=== PATIENT | female | born 1950 | race Caucasian/White ===

== ENCOUNTER 2018-07-30 09:37 | Emergency (ER) | payer OTHER, MEDICAID ==
[~2018-07-30] VITALS: Ht 149.9 cm; Wt 95.3 kg
[~2018-07-30 09:37] MED LIST: BACL10TA4 PO; CALC600T7 PO; CITA20TA15 PO; GABA-560 PO; LOSA50TA39 PO; METO25TA PO; NAPR-54 PO; TRAM50TA3 PO
[2018-07-30 09:44] VITALS: BP 194/81
[2018-07-30] MEDS ORDERED: ALBUTEROL SULFATE/IPRATROPIU 3 ML SOL IH ONE (10:15)
[2018-07-30 10:45] VITALS: BP 184/80
== END 2018-07-30 10:45 | disposition home or self-care (01) ==
LOC: MED 09:37
DX: J20.9 Acute bronchitis, unspecified (principal); I10 Essential (primary) hypertension; Z79.899 Other long term (current) drug therapy
CPT/HCPCS: 71045; 94640; 99283; J7620

== ENCOUNTER 2018-08-09 19:12 | Emergency (ER) | payer OTHER, MEDICAID ==
[~2018-08-09] VITALS: Ht 152.4 cm; Wt 113.4 kg
[~2018-08-09 19:12] MED LIST changes: +LOSA50TA27 PO; -LOSA50TA39 PO
[2018-08-09 19:18] VITALS: BP 174/79
[2018-08-09] MEDS ORDERED: NACL 0.9% 1,000 ML IV ONE (20:34)
[2018-08-09] MEDS ORDERED: KETOROLAC 30 MG/ML VIAL IVP ONE (20:35)
[2018-08-09] MEDS ORDERED: ACETAMIN/CODEINE 120/12MG-5ML 5 ML UDC PO ONE (20:35)
[2018-08-09] MEDS ORDERED: ONDANSETRON 4 MG/2 ML VIAL IVP ONE (20:40)
[2018-08-09 21:03] LABS: BASOPHILS # (AUTO) 0.1 K/uL (0.00-0.22); BASOPHILS % (AUTO) 0.7 % (0.0-2.0); EOSINOPHILS # (AUTO) 0.2 K/uL (0-0.4); EOSINOPHILS % (AUTO) 2.4 % (0.0-4.0); HEMATOCRIT 41.6 % (36-48); HEMOGLOBIN 13.8 g/dL (12.0-16.0); LYMPHOCYTES # (AUTO) 3.4 K/uL (2.5-16.5); LYMPHOCYTES % (AUTO) 43.9 % (20.5-51.1); MEAN CORPUSCULAR HEMOGLOBIN 30 pg (27-31); MEAN CORPUSCULAR HGB CONC 33 g/dL (33-37); MEAN CORPUSCULAR VOLUME 89.9 fL (80-94); MONOCYTES # (AUTO) 0.7 K/uL (0.8-1.0); MONOCYTES % (AUTO) 9.8 % (1.7-9.3); NEUTROPHILS # (AUTO) 3.3 K/uL (1.8-7.7); NEUTROPHILS % (AUTO) 43.2 % (42.2-75.2); PLATELET COUNT (AUTO) 231 K/uL (140-450); RED BLOOD CELL COUNT(AUTO) 4.63 MIL/uL (4.20-5.40); RED CELL DISTRIBUTION WIDTH 13.9 % (11.6-13.7); WHITE BLOOD COUNT (AUTO) 7.6 K/uL (4.8-10.8)
[2018-08-09 21:32] LABS: ALBUMIN 3.5 g/dL (3.4-5.0); ANION GAP 11.3 (8-16); CREATININE 1.1 mg/dL (0.6-1.3); POTASSIUM 3.3 mmol/L (3.5-5.1); TOTAL BILIRUBIN 0.5 mg/dL (0.0-1.0)
[2018-08-09] MEDS ORDERED: ALBUTEROL SULFATE/IPRATROPIU 3 ML SOL IH ONE (21:40)
[2018-08-09 21:45] LABS: APPEARANCE,URINE CLEAR (CLEAR); BLOOD, URINE NEGATIVE (NEGATIVE); COLOR,URINE YELLOW (YELLOW); PH,URINE 6.5 (5.0-9.0); UGLUCOSE NEGATIVE (NEGATIVE)
[2018-08-09 21:46] LABS: BILIRUBIN,URINE NEGATIVE (NEGATIVE); LEUKOCYTE ESTERASE ,URINE 2+ (NEGATIVE); NITRITE, URINE NEGATIVE (NEGATIVE)
[2018-08-09 21:54] LABS: RBC,URINE 0-5 (RARE) /HPF (0-5)
[2018-08-09 21:55] LABS: URINE AMORPHOUS URATE 1+ /HPF (None Seen)
[2018-08-10 00:25] VITALS: BP 143/78
== END 2018-08-10 00:24 | disposition home or self-care (01) ==
LOC: MED 19:12
DX: J20.9 Acute bronchitis, unspecified (principal); I10 Essential (primary) hypertension; Z79.899 Other long term (current) drug therapy
CPT/HCPCS: 36415; 71045; 80053; 81001; 83605; 83690; 84484; 85025; 87040; 87086; 87804; 94640; 94760; 96374; 96375; 99285; J1885; J2405; J7030; J7620; Q0092

== ENCOUNTER 2018-08-20 14:26 | Emergency (ER) | payer OTHER, MEDICAID ==
[~2018-08-20] VITALS: Ht 152.4 cm; Wt 97.5 kg
[2018-08-20 14:32] VITALS: BP 123/77
--- NOTE | 2018-08-20 14:40 | NUR ---
PT AMBULATES TO BED 4
--- NOTE | 2018-08-20 14:43 | NUR ---
67/F BIB DTR C/O RT RIB PAIN X YESTERDAY. PT STATES SHE WAS REACHING FOR SOMETHING BEHIND THE BED AND HIT HER RIB AGAINST THE CORNER BALL OF THE BED". - SWELLING, - REDNESS AT THIS TIME . HX; HTN, HIGH CHOLESTEROL, ARTHRITIS.AAOX4 WITH EVEN AND STEADY GAIT; LUNGS CLEAR BL. PATIENT STATES PAIN OF 9/10 AT THIS TIME. PATIENT POSITIONED FOR COMFORT; HOB ELEVATED; BEDRAILS UP X2; BED DOWN. ER MD MADE AWARE OF PT STATUS.
[2018-08-20] MEDS ORDERED: HYDROcodone/APAP 5/325 MG 1 TAB TAB PO ONE (14:50)
--- NOTE | 2018-08-20 14:58 | NUR ---
PT TAKEN TO X RAY VIA W/C, ACCOMPANIED BY [employer].
--- NOTE | 2018-08-20 14:58 | NUR ---
Gumaro murguia in [facility] - 08/20/18 at 1459 by MEDALEJANDRO XRAY AT BEDSIDE
--- NOTE | 2018-08-20 15:13 | NUR ---
PT RETURNED FROM XRAY
[2018-08-20 16:22] VITALS: BP 136/76
--- NOTE | 2018-08-20 16:22 | NUR ---
Patient discharged with v/s stable. Written and verbal after care instructions given and explained. Patient alert, oriented and verbalized understanding of instructions. Ambulatory with steady gait. All questions addressed prior to discharge. ID band removed. Patient advised to follow up with PMD. Rx of TRAMADOL & IBUPROFEN given. Patient educated on indication of medication including possible reaction and side effects. Opportunity to ask questions provided and answered.
== END 2018-08-20 16:22 | disposition home or self-care (01) ==
LOC: MED 14:26
DX: S20.20XA Contusion of thorax, unspecified, initial encounter (principal); I10 Essential (primary) hypertension; Z79.899 Other long term (current) drug therapy; W19.XXXA Unspecified fall, initial encounter; Y93.89 Activity, other specified; Y92.89 Other specified places as the place of occurrence of the external cause; Y99.8 Other external cause status
CPT/HCPCS: 71101; 99284

== ENCOUNTER 2018-12-31 23:40 | Inpatient (IN) | payer OTHER ==
[~2018-12-31] VITALS: Ht 152.4 cm; Wt 97.5 kg
[~2018-12-31 23:40] MED LIST changes: -LOSA50TA27 PO; +LOSA50TA66 PO
[2018-12-31 23:42] VITALS: BP 167/77
--- NOTE | 2018-12-31 23:54 | NUR ---
PT W/C ASSISTED TO ER 3
--- NOTE | 2018-12-31 23:55 | NUR ---
ASSUMED CARE OF PT AT THIS TIME. C/O N/V AMS X 6 HOURS AGO S/P EATING DINNER. PT IS LETHARGIC AND NOT ANSWERSING QUESTIONS APPROPRIATELY AT THIS TIME. NO OBVIOUS NEURO DEFICITS OR TRAUMA NOTED. PT ABLE TO MOVE ALL EXTREMITIES. 0/10 AT THIS TIME; VSS; PATIENT POSITIONED FOR COMFORT; HOB ELEVATED; BEDRAILS UP X2; BED DOWN. ER MD MADE AWARE OF PT STATUS. WILL CONTINUE TO MONITOR.
--- NOTE | 2019-01-01 00:17 | NUR ---
PT TAKEN TO CT
[2019-01-01 00:49] LABS: BASOPHILS % (AUTO) 0.3 % (0.0-2.0); EOSINOPHILS # (AUTO) 0.1 K/uL (0-0.4); EOSINOPHILS % (AUTO) 1.1 % (0.0-4.0); HEMOGLOBIN 13.5 g/dL (12.0-16.0); LYMPHOCYTES # (AUTO) 3.5 K/uL (2.5-16.5); MEAN CORPUSCULAR HEMOGLOBIN 31 pg (27-31); MEAN CORPUSCULAR HGB CONC 34 g/dL (33-37); MEAN CORPUSCULAR VOLUME 91.8 fL (80-94); MONOCYTES # (AUTO) 0.7 K/uL (0.8-1.0); MONOCYTES % (AUTO) 8.2 % (1.7-9.3); NEUTROPHILS % (AUTO) 48.4 % (42.2-75.2); PLATELET COUNT (AUTO) 188 K/uL (140-450); RED BLOOD CELL COUNT(AUTO) 4.35 MIL/uL (4.20-5.40); RED CELL DISTRIBUTION WIDTH 13.8 % (11.6-13.7); WHITE BLOOD COUNT (AUTO) 8.4 K/uL (4.8-10.8)
[2019-01-01 00:54] LABS: ANION GAP 12.9 (8-16); CARBON DIOXIDE 27.5 mmol/L (21-32); CREATININE 1.5 mg/dL (0.6-1.3); POTASSIUM 3.4 mmol/L (3.5-5.1); TOTAL BILIRUBIN 0.4 mg/dL (0.0-1.0)
[2019-01-01 00:55] LABS: ALBUMIN 3.3 g/dL (3.4-5.0)
--- NOTE | 2019-01-01 00:55 | NUR ---
Straight cath removed, tip inact.
--- NOTE | 2019-01-01 00:55 | NUR ---
# 14 FR Urinary catheter inserted utilizing sterile technique. Immediate return of clear, yellow urine noted. Urine sample collected and sent to lab. Pt tolerated procedure well.
[2019-01-01 00:56] LABS: LIPASE 113 U/L (73-393)
--- NOTE | 2019-01-01 01:00 | NUR ---
PT ALERT TO NAME AND PAIN, PT IS NON-VERBAL. WILL CONTINUE TO MONITOR.
--- NOTE | 2019-01-01 01:00 | NUR ---
LAB AT BEDSIDE.
[2019-01-01 01:39] LABS: APPEARANCE,URINE CLEAR (CLEAR); BILIRUBIN,URINE NEGATIVE (NEGATIVE); BLOOD, URINE TRACE-L (NEGATIVE); COLOR,URINE YELLOW (YELLOW); LEUKOCYTE ESTERASE ,URINE NEGATIVE (NEGATIVE); NITRITE, URINE NEGATIVE (NEGATIVE); UGLUCOSE NEGATIVE (NEGATIVE)
[2019-01-01 02:00] LABS: WBC,URINE 0-5 /HPF (0-5)
[2019-01-01 02:03] LABS: BARBITURATE, URINE NEGATIVE ng/ml (NEG <=200); BENZODIAZEPINE, URINE NEGATIVE ng/mL (NEG <=200); CANNABINOID, URINE NEGATIVE ng/mL (NEG <=50); COCAINE, URINE NEGATIVE ng/mL (NEG <=300); OPIATE, URINE NEGATIVE ng/mL (NEG <=2000); PHENCYCLIDINE SCREEN,URINE NEGATIVE ng/mL (NEG <=25)
--- NOTE | 2019-01-01 02:20 | NUR ---
DAUGHTER AT BEDSIDE. PT IS MORE ALERT, PT STATES SHE IS IN 0/10 PAIN. WILL CONTINUE TO MONITOR. NEG HAND GRIBS, PUPILS FIXED AND NON REACTIVE. BP IS 216/154 ER MD MADE AWARE.
[2019-01-01] MEDS ORDERED: ENALAPRILAT 2.5 MG/2 ML VIAL IVP ONE (02:30)
--- NOTE | 2019-01-01 02:45 | NUR ---
Dr. Hauser evaluating patient at bedside.
[2019-01-01] MEDS ORDERED: HYDROcodone/APAP 7.5/325 MG 1 TAB PO PRN (02:55)
[2019-01-01] MEDS ORDERED: DOCUSATE SODIUM 100 MG GELCAP PO PRN (02:55)
[2019-01-01] MEDS ORDERED: MORPHINE SULFATE 2 MG/ML SYR IVP PRN (02:55)
[2019-01-01] MEDS ORDERED: ONDANSETRON 4 MG/2 ML VIAL IM/IVP PRN (02:55)
--- NOTE | 2019-01-01 03:00 | NUR ---
Dr. Calvillo evaluating patient at bedside.
[2019-01-01 03:25] VITALS: BP 198/81
--- NOTE | 2019-01-01 03:25 | NUR ---
REPORT RECEIVED FROM ED NURSE AT BEDSIDE. PT IN STABLE CONDITION. AAOX1. PT IS SEVERELY CONFUSED. INTRODUCED SELF TO PT. BOARD UPDATED. FLACC 0. NO SOB ON 2L O2 VIA NC. AFEBRILE. IV SITE R AC 20G RUNNING NS@10ML/HR PATENT AND INTACT. SKIN WARM, DRY, AND INTACT WITH NO OPEN WOUNDS BUT A RASH ON THE RIGHT SIDE OF THE ABDOMEN. BED LOCKED IN LOW POSITION. CALL HAYWARD WITHIN REACH. SAFETY PRECAUTIONS IN PLACE. ALL NEEDS MET AT THIS TIME.
[2019-01-01] MEDS ORDERED: DEXTROSE 50% 50 ML SYR IVP PRN (03:30)
[2019-01-01] MEDS: NACL 0.9% 1,000 ML IV SCH (03:30)
[2019-01-01] MEDS ORDERED: hydrALAZINE 20 MG/ML VIAL IVP SCH (03:30)
[2019-01-01] MEDS ORDERED: INSULIN LISPRO SLIDING SCALE 100 UNITS/ML VIAL SUBQ PRN (03:30)
--- NOTE | 2019-01-01 03:30 | NUR ---
Admited to Tele. Will go to room 120-A. BP 191/81, ER made aware. Daughter, (Gabriel) would like to be contacted with any updates , reported to FARHAD Garcia.
[2019-01-01 03:51] LABS: MAGNESIUM 2.1 mg/dL (1.8-2.4); PHOSPHORUS 4.1 mg/dL (2.5-4.9)
[2019-01-01 04:00] VITALS: BP 103/41
[2019-01-01] MEDS ORDERED: ENALAPRILAT 2.5 MG/2 ML VIAL IVP SCH (04:00)
--- NOTE | 2019-01-01 04:03 | NUR ---
VASOTEC AND APRESOLINE GIVEN IVP. PT TOLERATED WELL.
[2019-01-01 04:11] LABS: PROTHROMBIN TIME 9.9 secs (10.8-13.4)
--- NOTE | 2019-01-01 05:03 | NUR ---
BP REEVALUATED. BP 99/51. HR 58.
[2019-01-01 05:12] LABS: CHOL/HDL RATIO 3.5 (1-4.5)
[2019-01-01] MEDS: BLOOD GLUCOSE MONITORING 1 DEV DEV FS SCH ×2 (05:16→12:08)
--- NOTE | 2019-01-01 05:16 | NUR ---
BS 113. NO INSULIN COVERAGE NEEDED.
[2019-01-01 05:36] LABS: THYROID STIMULATING HORMONE 1.59 uIU/mL (0.34-3.74)
--- NOTE | 2019-01-01 06:25 | NUR ---
PT SLEEPING COMFORTABLY IN BED. NO S/S OF DISTRESS NOTED. WILL CONTINUE TO MONITOR.
--- NOTE | 2019-01-01 06:29 | NUR ---
BP REEVALUATED. BP 165/85 AND HR OF 88.
[2019-01-01 08:00] VITALS: BP 155/80
[2019-01-01] MEDS: LISINOPRIL 20 MG TAB PO SCH (09:00)
--- NOTE | 2019-01-01 10:00 | NUR ---
PATIENT HAS BEEN SCREENED AND CATEGORIZED HIGH NUTRITION RISK. PATIENT WILL BE SEEN WITHIN 1-2 DAYS OF ADMISSION. 01/01/19-01/02/[address]
[2019-01-01 12:00] VITALS: BP 200/81
--- NOTE | 2019-01-01 12:15 | NUR ---
BP @ 200/81 at this time, HR 74. No prn antihypertensive med available at this time. Pt aaox3, verbal, no c/o pain/discomfort, respirations even & nonlabored on O2 @ 2Lpm via n/c. Dr. Hdez paged. O2 supp removed at this time d/t good O2sat. Awaiting physician orders. Call light within reach.
[2019-01-01] MEDS: hydrALAZINE 20 MG/ML VIAL IVP PRN (12:36)
[2019-01-01] MEDS ORDERED: METOPROLOL 25 MG TAB PO SCH (13:00)
--- NOTE | 2019-01-01 13:09 | NUR ---
01/01/19 RD INITIAL ASSESSMENT COMPLETED PLEASE REFER TO NUTRITION ASSESSMENT UNDER CARE ACTIVITY FOR ESTIMATED NUTRITIONAL NEEDS. 1. CONTINUE CLEAR DIET MEDICALLY APPROPRIATE 2. WHEN PATIENT BECOMES MEDICALLY STABLE CONSIDER REQUESTING A SWALLOW EVALUATION AND ADVANCING DIET WITH APPROPRIATE FOOD TEXTURES WITH 2GM NA DIET. 4. RD TO FOLLOW-UP 3-5 DAYS, MODERATE RISK LEONOR HERRERA RD
--- NOTE | 2019-01-01 13:40 | NUR ---
Pt in bed, aaox4, verbal, no c/o discomfort. Respirations even & nonlabored on room air, no signs of distress. Daughter at bedside. Call light within reach. Bed alarm on.
--- NOTE | 2019-01-01 14:03 | NUR ---
Patient resting comfortably in bed with family at the bedside. No signs of distress on RA, bed in low position, call light within reach.
[2019-01-01] MEDS ORDERED: POTASSIUM CHLORIDE 10 MEQ TABER PO SCH (15:00)
[2019-01-01] MEDS: ACETAMINOPHEN 325 MG TAB PO PRN (15:25)
[2019-01-01 16:00] VITALS: BP 156/52
[2019-01-01] MEDS ORDERED: BACL10TA4 PO (16:24)
[2019-01-01] MEDS ORDERED: HYDR-3298 PO (16:24)
[2019-01-01] MEDS ORDERED: TRAM50TA1 PO (16:24)
[2019-01-01] MEDS ORDERED: METO25TA PO (16:24)
[2019-01-01] MEDS ORDERED: GABA300C PO (16:24)
--- NOTE | 2019-01-01 16:30 | NUR ---
Pt assisted to toilet, able to amb from bed to toilet with handheld assist. Gait unsteady. Pt states she has walker at home but doesn't use it. Encouraged pt to utilize assistive devices for safety. Verbalized understanding. Pt had mod amt soft brown BM. Pericare provided by daughter. Pt amb back to bed with handheld assist. Call light within reach. Daughter at bedside.
--- NOTE | 2019-01-01 19:10 | NUR ---
Report given to pm nurse Garcia.
--- NOTE | 2019-01-01 19:11 | NUR ---
REPORT RECEIVED FROM AM NURSE AT BEDSIDE. PT IN STABLE CONDITION. AAOX4. INTRODUCED SELF TO PT. BOARD UPDATED. NO COMPLAINTS OF PAIN. NO SOB. AFEBRILE. IV SITE R AC 20G RUNNING NS@10ML/HR PATENT AND INTACT. SKIN WARM, DRY, AND INTACT WITH NO OPEN WOUNDS. BED LOCKED IN LOW POSITION. CALL HAYWARD WITHIN REACH. SAFETY PRECAUTIONS IN PLACE. ALL NEEDS MET AT THIS TIME.
[2019-01-01 20:00] VITALS: BP 128/58
--- NOTE | 2019-01-01 20:24 | NUR ---
NORCO GIVEN FOR 6/10 HIP PAIN. PT TOLERATED WELL. PT REFUSED NEURONTIN. METOPROLOL NOT GIVEN DUE TO DECREASED DIASTOLIC BP OF 58 AND HR OF 64.
[2019-01-01] MEDS: METOPROLOL 25 MG TAB PO SCH (20:26)
[2019-01-01] MEDS: GABAPENTIN 300 MG CAP PO SCH (20:26)
--- NOTE | 2019-01-01 22:15 | NUR ---
PT IN BED SUPINE WATCHING TV. NO S/S OF DISTRESS NOTED. WILL CONTINUE TO MONITOR.
--- NOTE | 2019-01-01 23:40 | NUR ---
PT LAYING IN BED BUT AROUSABLE. NO S/S OF DISTRESS NOTED. BREATHING EVEN, UNLABORED, AND WNL. WILL CONTINUE TO MONITOR.
[2019-01-02] VITALS: BP 132/59
--- NOTE | 2019-01-02 01:30 | NUR ---
PT SLEEPING COMFORTABLY IN BED. NO S/S OF DISTRESS NOTED. RESPIRATIONS EVEN, UNLABORED, AND WNL. WILL CONTINUE TO MONITOR.
[2019-01-02] MEDS: NACL 0.9% 1,000 ML IV SCH (02:54)
--- NOTE | 2019-01-02 03:35 | NUR ---
PT BP ELEVATED@176/69, HR@63. PT DOES HAVE COMPLAINTS OF A HEADACHE WELL.
[2019-01-02] MEDS: hydrALAZINE 20 MG/ML VIAL IVP PRN (03:39)
[2019-01-02] MEDS: ACETAMINOPHEN 325 MG TAB PO PRN (03:39)
--- NOTE | 2019-01-02 03:39 | NUR ---
HYDRALAZINE GIVEN FOR INCREASED BP. TYL 325 GIVEN FOR HEADACHE. PT TOLERATED WELL. PT ONLY WANTED 325MG, NOT THE FULL DOSE.
[2019-01-02 04:00] VITALS: BP 176/69
--- NOTE | 2019-01-02 04:39 | NUR ---
PT BP DECREASED TO 156/64 WITH A HR OF 64.
--- NOTE | 2019-01-02 05:00 | NUR ---
PT SLEEPING BUT AROUSABLE. NO S/S OF DISTRESS NOTED. WILL CONTINUE TO MONITOR.
[2019-01-02 07:02] LABS: BASOPHILS % (AUTO) 0.5 % (0.0-2.0); EOSINOPHILS # (AUTO) 0.1 K/uL (0-0.4); EOSINOPHILS % (AUTO) 1.3 % (0.0-4.0); HEMATOCRIT 39.7 % (36-48); HEMOGLOBIN 13.4 g/dL (12.0-16.0); LYMPHOCYTES # (AUTO) 3.6 K/uL (2.5-16.5); LYMPHOCYTES % (AUTO) 48.4 % (20.5-51.1); MEAN CORPUSCULAR HEMOGLOBIN 31 pg (27-31); MEAN CORPUSCULAR HGB CONC 34 g/dL (33-37); MEAN CORPUSCULAR VOLUME 91.6 fL (80-94); MONOCYTES # (AUTO) 0.7 K/uL (0.8-1.0); MONOCYTES % (AUTO) 9.3 % (1.7-9.3); NEUTROPHILS % (AUTO) 40.5 % (42.2-75.2); PLATELET COUNT (AUTO) 200 K/uL (140-450); RED BLOOD CELL COUNT(AUTO) 4.33 MIL/uL (4.20-5.40); RED CELL DISTRIBUTION WIDTH 13.6 % (11.6-13.7); WHITE BLOOD COUNT (AUTO) 7.4 K/uL (4.8-10.8)
--- NOTE | 2019-01-02 07:07 | NUR ---
REPORT GIVEN TO AM NURSE AT BEDSIDE. PT IN STABLE CONDITION.
--- NOTE | 2019-01-02 07:08 | NUR ---
REPORT RECEIVED FROM DICTAPHONE TYPIST FARHAD LUO AT BEDSIDE FOR CONTINUITY OF CARE. PATIENT AWAKE AND ALERT, SITTING ON SIDE OF BED. C/O OF HEADACHE, LAST MEDICATED WITH TYLENOL AT 0339. RESPIRATIONS EVEN AND UNLABORED ON ROOM AIR. IV SITE PATENT, INTACT, AND ASYMPTOMATIC INFUSING IVF WELL. VERBALIZED PLAN OF CARE WITH PATIENT, SHE VERBALIZED UNDERSTANDING AND ASKED FOR HER ANTIANXIETY MEDICATION, INFORMED HER WILL SPEAK WITH MD TO EXPLORE WHICH MEDICATION IT IS BECAUSE PATIENT DOES NOT RECALL THE NAME. SAFETY PRECAUTIONS IN PLACE, BED ON LOWEST SETTING WITH BED ALARM ON, CALL LIGHT WITHIN REACH, WILL CONTINUE TO MONITOR PATIENT.
[2019-01-02 07:28] LABS: ANION GAP 15.7 (8-16); POTASSIUM 3.7 mmol/L (3.5-5.1)
[2019-01-02 07:30] LABS: MAGNESIUM 1.8 mg/dL (1.8-2.4); PHOSPHORUS 2.8 mg/dL (2.5-4.9)
[2019-01-02 08:03] VITALS: BP 176/75
[2019-01-02] MEDS: METOPROLOL 25 MG TAB PO SCH (08:10)
[2019-01-02] MEDS: GABAPENTIN 300 MG CAP PO SCH (08:10)
--- NOTE | 2019-01-02 08:10 | NUR ---
ORDERED MEDICATIONS GIVEN. PATIENT TOLERATED THEM WELL. PATIENT SITTING UP EATING BREAKFAST, RESPIRATIONS EVEN AND UNLABORED ON ROOM AIR. PATIENT DENIES PAIN.SAFETY PRECAUTIONS IN PLACE, CALL LIGHT WITHIN REACH, WILL CONTINUE TO MONITOR PATIENT.
--- NOTE | 2019-01-02 08:30 | NUR ---
SPOKE TO DR. PRINGLE ABOUT PATIENT'S ANXIETY. HE STATED HE WILL CALL [facility] AND PATIENT'S PHARMACY TO FOLLOW UP. RN VERBALIZED UNDERSTANDING.
[2019-01-02] MEDS ORDERED: CITA20TA15 PO (08:43)
[2019-01-02] MEDS ORDERED: CITALOPRAM 20 MG TAB PO SCH (09:00)
[2019-01-02] MEDS ORDERED: LOSARTAN 50 MG TAB PO SCH (09:00)
[2019-01-02] MEDS ORDERED: HYDROCHLOROTHIAZIDE 25 MG TAB PO SCH (09:00)
--- NOTE | 2019-01-02 09:01 | NUR ---
ORDERED MEDICATIONS GIVEN. PATIENT TOLERATED IT. PATIENT SITTING IN CHAIR NEXT TO BED, RESPIRATIONS EVEN AND UNLABORED ON ROOM AIR. PATIENT DENIES PAIN. PATIENT EAGER TO WALK. INFORMED PATIENT TO WAIT FOR PHYSICAL THERAPY TO SEE HER AND EVALUATE HER BEFORE PATIENT WALKS. PATIENT VERBALIZED UNDERSTANDING. SAFETY PRECAUTIONS IN PLACE, CALL LIGHT WITHIN REACH, WILL CONTINUE TO MONITOR PATIENT.
--- NOTE | 2019-01-02 09:03 | NUR ---
PHYSICAL THERAPY IN TO SEE PATIENT. WILL WAIT FOR THEIR EVALUATION.
[2019-01-02 09:05] VITALS: BP 162/79
[2019-01-02] MEDS: LISINOPRIL 20 MG TAB PO SCH (09:55)
--- NOTE | 2019-01-02 09:55 | NUR ---
ORDERED MEDICATION GIVEN. RAFFI Rodriguez HELD D/T BP 165/71 H4 61. PATIENT TOLERATED IT WELL. PATIENT AMBULATED TO BATHROOM ON SLOW BUT STEADY GAIT WITH STANDBY ASSIST. PATIENT VOIDED. PATIENT NOW SETTLED BACK IN BED. RESPIRATIONS EVEN AND UNLABORED. PATIENT DOES NOT COMPLAIN OF PAIN. SAFETY PRECAUTIONS IN PLACE, CALL LIGHT WITHIN REACH, WILL CONTINUE TO MONITOR PATIENT.
--- NOTE | 2019-01-02 09:59 | NUR ---
PATIENT AMBULATED TO BATHROOM ON STEADY GAIT WITH STANDBY ASSIST. PATIENT VOIDED. PATIENT NOW BACK IN BED, NO COMPLAINTS AT THIS TIME. PATIENT DENIES PAIN. SAFETY PRECAUTIONS IN PLACE, CALL LIGHT WITHIN REACH, WILL CONTINUE TO MONITOR PATIENT.
--- NOTE | 2019-01-02 10:15 | NUR ---
DAUGHTER MARISOL FROM [facility] CALLED. UPDATED HER ON PATIENT'S STATUS. SHE VERBALIZED UNDERSTANDING. PATIENT AWARE. WILL CONTINUE TO MONITOR PATIENT.
[2019-01-02] MEDS ORDERED: METO25TE2 PO (10:54)
[2019-01-02] MEDS ORDERED: LORazepam 2 MG/ML VIAL IVP PRN (10:55)
[2019-01-02] MEDS ORDERED: ONDA4TAB PO (11:22)
[2019-01-02] MEDS ORDERED: METO50TE2 PO (11:23)
--- NOTE | 2019-01-02 11:45 | NUR ---
DISCHARGE TEACHING AND EDUCATION GIVEN TO PATIENT. PATIENT VERBALIZED UNDERSTANDING. PRESCRIPTION TRANSMITTED TO PATIENT'S PREFERRED PHARMACY. PATIENT AWARE. NO QUESTIONS AT THIS TIME. PATIENT CALLED [facility] WHO WILL COME TO PICK HER UP AND TAKE HER HOME. PATIENT WOULD PREFER TO BE DISCHARGE AFTER LUNCH, RN VERBALIZED AGREEMENT. WILL CONTINUE TO MONITOR PATIENT.
[2019-01-02 11:57] VITALS: BP 156/75
--- NOTE | 2019-01-02 12:45 | NUR ---
PATIENT AMBULATED TO BATHROOM WITH STANDBY ASSIST. PATIENT CURRENTLY SITTING BY SIDE OF BED EATING LUNCH. STATED THAT DAUGHTER IS ON HER WAY TO PICK HER UP SO SHE CAN BE DISCHARGED HOME. RN VERBALIZED UNDERSTANDING. SAFETY PRECAUTION IN PLACE, CALL LIGHT WITHIN REACH, WILL CONTINUE TO MONITOR PATIENT.
--- NOTE | 2019-01-02 14:15 | NUR ---
DAUGHTER AT BEDSIDE TO PICK PATIENT UP. IV REMOVED, IV CATHETER INTACT, MINIMAL BLEEDING NOTED. TELE MONITOR REMOVED. ID BANDS CUT. PATIENT NOW IS CHANGING INTO HER OWN CLOTHING AND WILL BE DISCHARGE WITH HER DAUGHTER HOME.
--- NOTE | 2019-01-02 14:30 | NUR ---
PATIENT DISCHARGED VIA WHEELCHAIR OFF THE FLOOR. PATIENT TOOK ALL HER BELONGINGS WITH HER. PATIENT WENT HOME WITH FAMILY.
== END 2019-01-02 14:30 | disposition home or self-care (01) | DRG 77 ==
LOC: MED 23:40 → MTU 01-01 02:57
PROVIDERS: ADMIT Family Medicine; ATTEND Family Medicine
DX: I67.4 Hypertensive encephalopathy (principal); N17.0 Acute kidney failure with tubular necrosis; E44.1 Mild protein-calorie malnutrition; Z68.41 Body mass index [BMI] 40.0-44.9, adult; K52.9 Noninfective gastroenteritis and colitis, unspecified; K57.90 Diverticulosis of intestine, part unspecified, without perforation or abscess without bleeding; I10 Essential (primary) hypertension; E78.00 Pure hypercholesterolemia, unspecified; M19.90 Unspecified osteoarthritis, unspecified site; Z96.643 Presence of artificial hip joint, bilateral; E87.6 Hypokalemia; E66.01 Morbid (severe) obesity due to excess calories; I16.0 Hypertensive urgency; E11.9 Type 2 diabetes mellitus without complications; T62.91XA Toxic effect of unspecified noxious substance eaten as food, accidental (unintentional), initial encounter; Y92.89 Other specified places as the place of occurrence of the external cause; Z79.899 Other long term (current) drug therapy; Z71.3 Dietary counseling and surveillance; Z79.84 Long term (current) use of oral hypoglycemic drugs
CPT/HCPCS: 36415; 70450; 71045; 80048; 80053; 80305; 81001; 82140; 82150; 82550; 82948; 83036; 83605; 83690; 83735; 83880; 84100; 84443; 84484; 85025; 85610; 85730; 87040; 87081; 87086; 93005; 96374; 97116; 99285; G0482; J0360; J1815; J3490; J7030